=== PATIENT | female | born 1990 | race African-American/Black ===

== ENCOUNTER 2016-12-08 22:16 | Emergency (ER) | payer MEDICAID ==
[~2016-12-08] VITALS: Ht 165.1 cm; Wt 109.0 kg
[2016-12-08] MEDS ORDERED: IBUPROFEN 600MG TABLET PO STA (23:18)
[2016-12-08 23:52] LABS: BASOPHILS % 1.1 % (0.0-2.0); EOSINOPHILS % 0.8 % (0.0-5.0); HEMATOCRIT. 39.9 % (36.0-48.0); HEMOGLOBIN. 13.2 g/dL (12.0-16.0); LYMPHOCYTES % 25.8 % (20.0-50.0); MEAN CORPUSCULAR HEMOGLOBIN 28.7 pg (28.0-32.0); MEAN CORPUSCULAR VOLUME 86.6 fL (81.0-99.0); MEAN PLATELET VOLUME 8.2 fl (7.4-10.4); MONOCYTES % 6.9 % (2.0-8.0); NEUTROPHILS % 65.4 % (40.0-76.0); PLATELET 205 x1000/uL (130-400)
[2016-12-08 23:57] LABS: CHLORIDE 106 mEq/L (98-107)
[2016-12-09 00:06] LABS: CARBON DIOXIDE 25 mEq/L (21-32)
[2016-12-09] MEDS ORDERED: POTASSIUM CHLORIDE 20MEQ TABLET SR PO ONE (00:30)
[2016-12-09 00:46] VITALS: BP 138/77
== END 2016-12-09 00:53 | disposition home or self-care (01) ==
LOC: ER 22:16
DX: R07.9 Chest pain, unspecified (principal); E87.6 Hypokalemia; F17.200 Nicotine dependence, unspecified, uncomplicated
CPT/HCPCS: 36415; 71010; 80053; 81025; 85025; 85379; 93005; 99285

== ENCOUNTER 2017-03-29 17:15 | Emergency (ER) | payer SELFPAY ==
[~2017-03-29] VITALS: Ht 165.1 cm; Wt 95.0 kg
[2017-03-29 17:29] VITALS: BP 158/99
[2017-03-29] MEDS ORDERED: LIDOCAINE HCL 1% 20ML VIAL (Pyxis) INJ MC ONE (21:00)
[2017-03-29] MEDS ORDERED: TETANUS, DIPHTHERIA, PERTUSSIS VAC/PF 0.5ML (>7YR OLD) IM ONE (21:00)
[2017-03-29] MEDS ORDERED: HYDROCODONE/ACETAMINOPHEN 5/325MG TABLET PO ONE (21:00)
== END 2017-03-29 23:10 | disposition home or self-care (01) ==
LOC: ER 17:15
DX: M25.471 Effusion, right ankle (principal); M25.472 Effusion, left ankle
CPT/HCPCS: 71045; 81025; 93970; 99284

== ENCOUNTER 2018-04-08 08:33 | Emergency (ER) | payer MEDICAID, OTHER ==
[~2018-04-08] VITALS: Ht 165.1 cm; Wt 116.0 kg
[2018-04-08] MEDS ORDERED: IBUPROFEN 600MG TABLET PO ONE (10:15)
[2018-04-08 11:10] VITALS: BP 145/96
== END 2018-04-08 11:14 | disposition home or self-care (01) ==
LOC: ER 08:46
DX: K08.89 Other specified disorders of teeth and supporting structures (principal); F17.200 Nicotine dependence, unspecified, uncomplicated
CPT/HCPCS: 99282; 99283

== ENCOUNTER 2020-11-28 13:56 | Emergency (ER) | payer MEDICAID ==
[~2020-11-28] VITALS: Ht 165.1 cm; Wt 95.0 kg
[2020-11-28 14:22] VITALS: BP 137/83
[2020-11-28] MEDS ORDERED: NAPR-1176 MT (15:11)
[2020-11-28] MEDS ORDERED: ACET-2708 MT (15:11)
[2020-11-28] MEDS ORDERED: IBUPROFEN 600MG TABLET PO ONE (15:15)
[2020-11-28] MEDS ORDERED: ACETAMINOPHEN 325MG TABLET PO ONE (15:15)
== END 2020-11-28 16:10 | disposition home or self-care (01) ==
LOC: ER 13:56
DX: S09.8XXA Other specified injuries of head, initial encounter (principal); M54.2 Cervicalgia; M25.512 Pain in left shoulder; I10 Essential (primary) hypertension; V43.52XA Car driver injured in collision with other type car in traffic accident, initial encounter; Y93.89 Activity, other specified; Y92.488 Other paved roadways as the place of occurrence of the external cause
CPT/HCPCS: 81025; 99283